=== PATIENT | female | born 1945 | race Caucasian/White ===

== ENCOUNTER 2022-06-30 11:38 | Inpatient (IN) | payer MEDICARE ==
[~2022-06-30 11:38] MED LIST: Magnevist 469MG/ML 20 ML VIAL ONE
[2022-06-30] MEDS ORDERED: Fentanyl 100 MCG/2 ML VIAL ONE (13:20)
[2022-06-30] MEDS ORDERED: Morphine 4 MG/ML VIAL ONE (15:07)
[2022-06-30] MEDS ORDERED: Ondansetron PF 4 MG/2 ML Vial ONE (15:07)
[2022-06-30] MEDS ORDERED: Promethazine HCl 25 MG/ML VIAL IM PRN (15:38)
[2022-06-30] MEDS ORDERED: Ondansetron PF 4 MG/2 ML Vial IVP PRN (15:38)
[2022-06-30] MEDS ORDERED: Morphine 2 MG/ML VIAL SLOW IVP PRN (15:38)
[2022-06-30] MEDS ORDERED: traMADol HCl 50 MG TAB PO PRN (15:44)
[2022-06-30] MEDS ORDERED: Sodium Chloride 0.9% 1,000 ML IV SCH (15:45)
[2022-06-30 16:13] LABS: Bacteria/HPF None Seen HPF (None Seen); Bilirubin Negative (Negative); Blood, Urine 1+ (Negative); Clarity Clear (Clear); Glucose, Urine (Dipstick) Normal (Negative); Ketone, Urine 20 mg/dL (Negative); Leukocyte Negative Leu/uL (Negative); Nitrite Negative (Negative); Protein, Urine (Dipstick) Negative (Neg-Trace); RBC/HPF 0-3 HPF (0-3); Specific Gravity, Urine 1.006 (1.002-1.036); Squamous Epithelial None Seen HPF (0-3); Urobilinogen Normal mg/dL (Less than 2); WBC/HPF 0-3 HPF (0-3)
[2022-06-30] MEDS ORDERED: Cyclobenzaprine 10 MG TAB PO PRN (16:48)
[2022-06-30 17:44] LABS: #Eosinphils 0.1 thou/uL (0.0-0.7); #Lymphocytes 1.5 thou/uL (1.20-3.40); #Monocytes 0.7 thou/uL (0.11-0.59); #Neutrophils 5.4 thou/uL (1.40-6.50); %Lymphocytes 19.6 % (21.0-51.0); %Monocytes 8.5 % (0.0-10.0); %Neutrophils 70.9 % (42.0-75.0); Mean Corpuscular HGB CONC 32.7 g/dL (32.0-36.0); Mean Corpuscular Hemoglobin 31.3 pg (27.0-31.0); Mean Corpuscular Volume 95.7 fL (78.0-98.0); Mean Platelet Volume 8.3 fL (7.4-10.4); Platelet Count 220 thou/uL (130-400); RBC Distribution Width 12.5 % (11.5-14.5); Red Blood Cell (RBC) Count 3.85 mill/uL (4.20-5.40); White Blood Cell (WBC) Count 7.7 thou/uL (4.8-10.8)
[2022-06-30 18:07] LABS: Anion Gap 14 mmol/L (10-20); BUN (Urea Nitrogen) 8 mg/dL (9.8-20.1); CK (CPK) 118 U/L (29-168); Calc. Creatinine Clearance 0 mL/min (70-130); Calcium 9.3 mg/dL (7.8-10.44); Carbon Dioxide 27 mmol/L (23-31); Chloride 103 mmol/L (98-107); Estimated GFR 91; Glucose 96 mg/dL (83-110); Magnesium 2.3 mg/dL (1.6-2.6); Phosphorus 3.5 mg/dL (2.3-4.7); Sodium 140 mmol/L (136-145)
[2022-06-30] MEDS ORDERED: oxyCODONE/Acetaminophen 5 mg/325 mg Tablet PO PRN (18:29)
[2022-06-30] MEDS: Dexamethasone 4 mg/ml Vial SLOW IVP SCH (18:54)
[2022-06-30] MEDS: Acetaminophen 325 MG TAB PO SCH ×2 (18:55→23:59)
[2022-06-30 19:02] VITALS: BMI 39.1
[2022-06-30] MEDS ORDERED: traMADol HCl 50 MG TAB PO SCH (20:00)
[2022-06-30] MEDS ORDERED: Gabapentin 400 MG CAP PO SCH (21:00)
[2022-06-30] MEDS ORDERED: Gabapentin 300 MG CAP PO SCH (21:00)
[2022-06-30] MEDS: Senokot S 8.6-50 MG TAB PO SCH (21:31)
[2022-06-30] MEDS: Famotidine/PF 20 mg/2ml Vial SLOW IVP SCH (21:31)
[2022-06-30] MEDS: Melatonin 3 MG TAB PO SCH (21:31)
[2022-06-30] MEDS: oxyCODONE/Acetaminophen 5 mg/325 mg Tablet PO PRN (21:31)
[2022-06-30] MEDS: Atenolol 50 MG TAB PO SCH (21:31)
[2022-06-30] MEDS: Baclofen 10 MG TAB PO PRN (21:32)
[2022-07-01] MEDS: Dexamethasone 4 mg/ml Vial SLOW IVP SCH ×4 (00:34→18:29)
[2022-07-01 01:20] LABS: SARS-CoV-2 NAA Rapid Test Not Detected (NotDetected)
[2022-07-01 05:29] LABS: #Lymphocytes 0.8 thou/uL (1.20-3.40); #Monocytes 0.1 thou/uL (0.11-0.59); #Neutrophils 5.2 thou/uL (1.40-6.50); %Basophils 0.5 % (0.0-1.0); %Eosinophils 0.1 % (0.0-10.0); %Lymphocytes 12.6 % (21.0-51.0); %Monocytes 0.9 % (0.0-10.0); %Neutrophils 85.8 % (42.0-75.0); Hemoglobin 12.5 g/dL (12.0-16.0); Mean Corpuscular HGB CONC 32.4 g/dL (32.0-36.0); Mean Corpuscular Hemoglobin 31.3 pg (27.0-31.0); Mean Corpuscular Volume 96.7 fL (78.0-98.0); Mean Platelet Volume 8.8 fL (7.4-10.4); Platelet Count 238 thou/uL (130-400); RBC Distribution Width 12.4 % (11.5-14.5); Red Blood Cell (RBC) Count 3.99 mill/uL (4.20-5.40); White Blood Cell (WBC) Count 6.1 thou/uL (4.8-10.8)
[2022-07-01 05:37] LABS: INR-International Normal Ratio 2.5; PTT 43.8 sec (22.9-36.1); Prothrombin Time 27.2 sec (12.0-14.7)
[2022-07-01 05:49] LABS: Phosphorus 4.3 mg/dL (2.3-4.7)
[2022-07-01 05:55] LABS: Anion Gap 15 mmol/L (10-20); BUN (Urea Nitrogen) 11 mg/dL (9.8-20.1); Calc. Creatinine Clearance 115 mL/min (70-130); Calcium 9.5 mg/dL (7.8-10.44); Carbon Dioxide 25 mmol/L (23-31); Chloride 103 mmol/L (98-107); Estimated GFR 92; Glucose 127 mg/dL (83-110); Magnesium 2.4 mg/dL (1.6-2.6); Potassium 4.5 mmol/L (3.5-5.1); Sodium 138 mmol/L (136-145)
[2022-07-01] MEDS: Acetaminophen 325 MG TAB PO SCH ×3 (06:00→19:02)
[2022-07-01] MEDS: oxyCODONE/Acetaminophen 5 mg/325 mg Tablet PO PRN ×3 (06:39→21:02)
[2022-07-01] MEDS: Senokot S 8.6-50 MG TAB PO SCH ×2 (08:50→21:01)
[2022-07-01] MEDS: DULoxetine 30 MG CAP PO SCH (08:50)
[2022-07-01] MEDS: Famotidine/PF 20 mg/2ml Vial SLOW IVP SCH ×2 (08:51→21:01)
[2022-07-01] MEDS: Polyethylene Glycol 3350 17 GM Packet PO SCH (08:53)
[2022-07-01] MEDS ORDERED: Fleet Enema 133 ML BOT PR SCH ×2 (10:30→14:45)
[2022-07-01] MEDS: Ibuprofen 200 MG TAB PO PRN (11:10)
[2022-07-01] MEDS ORDERED: traMADol HCl 50 MG TAB PO SCH (11:15)
[2022-07-01] MEDS: hydrALAZINE 20 MG/ML VIAL SLOW IVP PRN (13:26)
[2022-07-01] MEDS: Warfarin Sodium 3 MG TAB PO SCH (18:27)
[2022-07-01] MEDS: Baclofen 10 MG TAB PO PRN (21:01)
[2022-07-01] MEDS: Melatonin 3 MG TAB PO SCH (21:01)
[2022-07-01] MEDS: Gabapentin 400 MG CAP PO SCH (21:02)
[2022-07-01] MEDS: Atenolol 50 MG TAB PO SCH (21:02)
[2022-07-02] MEDS: Acetaminophen 325 MG TAB PO SCH ×5 (00:13→23:18)
[2022-07-02] MEDS: Dexamethasone 4 mg/ml Vial SLOW IVP SCH ×5 (00:14→23:19)
[2022-07-02] MEDS: oxyCODONE/Acetaminophen 5 mg/325 mg Tablet PO PRN ×4 (05:03→23:19)
[2022-07-02 06:04] LABS: INR-International Normal Ratio 2.1; PTT 36.2 sec (22.9-36.1); Prothrombin Time 24.1 sec (12.0-14.7)
[2022-07-02 06:05] LABS: Anion Gap 14 mmol/L (10-20); BUN (Urea Nitrogen) 18 mg/dL (9.8-20.1); Calc. Creatinine Clearance 106 mL/min (70-130); Calcium 9.5 mg/dL (7.8-10.44); Carbon Dioxide 27 mmol/L (23-31); Chloride 103 mmol/L (98-107); Estimated GFR 90; Glucose 100 mg/dL (83-110); Magnesium 2.5 mg/dL (1.6-2.6); Phosphorus 4.3 mg/dL (2.3-4.7); Potassium 5.1 mmol/L (3.5-5.1); Sodium 139 mmol/L (136-145)
[2022-07-02] MEDS: Levothyroxine Sodium 25 MCG TAB PO SCH (06:43)
[2022-07-02] MEDS ORDERED: Furosemide 20 MG/2 ML VIAL SLOW IVP SCH (06:45)
[2022-07-02] MEDS ORDERED: Milk Of Magnesia 30 ML UDCUP PO SCH ×3 (08:00→10:00)
[2022-07-02] MEDS: Polyethylene Glycol 3350 17 GM Packet PO SCH (09:53)
[2022-07-02] MEDS: Senokot S 8.6-50 MG TAB PO SCH ×2 (09:53→20:25)
[2022-07-02] MEDS: Famotidine/PF 20 mg/2ml Vial SLOW IVP SCH ×2 (09:54→20:25)
[2022-07-02] MEDS: DULoxetine 60 MG CAP PO SCH (09:54)
[2022-07-02] MEDS: DULoxetine 30 MG CAP PO SCH (09:54)
[2022-07-02] MEDS: Gabapentin 400 MG CAP PO SCH ×2 (09:54→20:23)
[2022-07-02] MEDS ORDERED: Fleet Enema 133 ML BOT PR SCH (10:00)
[2022-07-02] MEDS: Warfarin Sodium 3 MG TAB PO SCH (17:50)
[2022-07-02] MEDS: Ibuprofen 200 MG TAB PO PRN (17:50)
[2022-07-02 18:53] LABS: Anion Gap 15 mmol/L (10-20); BUN (Urea Nitrogen) 19 mg/dL (9.8-20.1); Calc. Creatinine Clearance 105 mL/min (70-130); Calcium 9.4 mg/dL (7.8-10.44); Carbon Dioxide 30 mmol/L (23-31); Chloride 99 mmol/L (98-107); Estimated GFR 89; Glucose 131 mg/dL (83-110); Potassium 3.9 mmol/L (3.5-5.1); Sodium 140 mmol/L (136-145)
[2022-07-02] MEDS: Melatonin 3 MG TAB PO SCH (20:25)
[2022-07-02] MEDS: Baclofen 10 MG TAB PO PRN (20:26)
[2022-07-02] MEDS ORDERED: Atenolol 50 MG TAB PO SCH (21:00)
[2022-07-02] MEDS: hydrALAZINE 20 MG/ML VIAL SLOW IVP PRN (23:31)
[2022-07-03] MEDS: Ibuprofen 200 MG TAB PO PRN (00:56)
[2022-07-03] MEDS: oxyCODONE/Acetaminophen 5 mg/325 mg Tablet PO PRN ×3 (04:33→17:56)
[2022-07-03 06:33] LABS: INR-International Normal Ratio 3.1; Prothrombin Time 32.5 sec (12.0-14.7)
[2022-07-03] MEDS: Dexamethasone 4 mg/ml Vial SLOW IVP SCH ×3 (06:49→17:56)
[2022-07-03] MEDS: Levothyroxine Sodium 25 MCG TAB PO SCH (06:49)
[2022-07-03] MEDS: Acetaminophen 325 MG TAB PO SCH ×3 (07:23→17:56)
[2022-07-03] MEDS: DULoxetine 30 MG CAP PO SCH (08:56)
[2022-07-03] MEDS: Gabapentin 400 MG CAP PO SCH (08:56)
[2022-07-03] MEDS: Famotidine/PF 20 mg/2ml Vial SLOW IVP SCH (08:56)
[2022-07-03] MEDS: DULoxetine 60 MG CAP PO SCH (08:56)
[2022-07-03] MEDS: Senokot S 8.6-50 MG TAB PO SCH (08:56)
[2022-07-03] MEDS: Polyethylene Glycol 3350 17 GM Packet PO SCH (08:56)
[2022-07-03] MEDS ORDERED: Mineral Oil ENEMA PR SCH (09:31)
[2022-07-03] MEDS: hydrALAZINE 20 MG/ML VIAL SLOW IVP PRN (11:25)
[2022-07-03 15:37] VITALS: BP 166/72; TEMP 97.9
[2022-07-03] MEDS: Warfarin Sodium 3 MG TAB PO SCH (17:56)
== END 2022-07-03 19:24 | disposition home health service (06) | DRG 552 ==
LOC: ERS 11:38 → ERHOLD 15:43 → SURG A 18:25
PROVIDERS: ADMIT Student in an Organized Health Care Education/Training Program; ATTEND Surgery
DX: M48.061 Spinal stenosis, lumbar region without neurogenic claudication (principal); F11.20 Opioid dependence, uncomplicated; G83.4 Cauda equina syndrome; Z20.822 Contact with and (suspected) exposure to COVID-19; I10 Essential (primary) hypertension; Z96.653 Presence of artificial knee joint, bilateral; Z96.612 Presence of left artificial shoulder joint; Z96.611 Presence of right artificial shoulder joint; E66.01 Morbid (severe) obesity due to excess calories; M47.816 Spondylosis without myelopathy or radiculopathy, lumbar region; M41.9 Scoliosis, unspecified; F41.9 Anxiety disorder, unspecified; I48.91 Unspecified atrial fibrillation; R33.9 Retention of urine, unspecified; K59.03 Drug induced constipation; T40.2X5A Adverse effect of other opioids, initial encounter; E87.5 Hyperkalemia; Z90.09 Acquired absence of other part of head and neck; Z88.2 Allergy status to sulfonamides; Z86.711 Personal history of pulmonary embolism; Z79.02 Long term (current) use of antithrombotics/antiplatelets; Z79.899 Other long term (current) drug therapy; Z68.39 Body mass index [BMI] 39.0-39.9, adult
CPT/HCPCS: 36415; 36416; 51702; 72157; 72158; 80048; 82550; 83735; 84100; 85025; 85610; 85730; 87086; 96374; 96375; A9579; J0360; J1100; J2270; J2405; J3010; S0028; U0002